=== PATIENT | male | born 1985 | race Caucasian/White ===

== ENCOUNTER 2024-04-09 12:23 | Outpatient (CLI) | payer MEDICAID | END 2024-04-09 23:59 | disposition home or self-care (01) | LOC: MRI 12:23 | PROVIDERS: ATTEND Nurse Practitioner Family | DX: G31.9 Degenerative disease of nervous system, unspecified (principal); J32.0 Chronic maxillary sinusitis; J32.3 Chronic sphenoidal sinusitis; R42 Dizziness and giddiness | CPT/HCPCS: 70551 ==